=== PATIENT | male | born 1995 | race Caucasian/White ===

== ENCOUNTER 2023-01-29 00:57 | Outpatient (CLI) | payer OTHER, SELFPAY | END 2023-01-29 00:58 | disposition home or self-care (01) | LOC: AMB 10:57 | PROVIDERS: Visit Provider Family Medicine | DX: K59.00 Constipation, unspecified (principal) | CPT/HCPCS: A0425; A0429 ==

== ENCOUNTER 2023-01-29 01:14 | Emergency (ER) | payer OTHER, SELFPAY ==
[2023-01-29 01:18] VITALS: BP 128/85; PULSE 73; RESP 16; TEMP 36.1; O2SAT 100
--- NOTE | 2023-01-29 01:41 | ED.GENADULT ---
HPI - General Adult General Chief complaint: Constipation Stated complaint: constipation Time Seen by Provider: 01/29/23 01:26 Source: patient Mode of arrival: EMS Limitations: no limitations History of Present Illness HPI narrative: 27-year-old male current resident of [facility] presents to the emergency department by EMS because of 4 days of constipation. Started Suboxone 4 days ago with a history of opiate use and persistent opiate cravings. Had not been using opiates in the immediate time prior to starting Suboxone. Has struggled with constipation as a teenager. Notes 7/10 abdominal pain, diffuse. Had a tiny spot of blood when attempting to wipe earlier today. Still eating and drinking normally, voiding without complication, no fever. Tried taking a dose of milk a magnesia with no improvement in symptoms. No history of bowel surgeries, not immune compromised. He has some restrictions staying at the [facility] regarding accessing medical care, nursing support only available on Tuesdays and . Was not started on a bowel regimen with his Suboxone. No abdominal pain or trauma, no difficulty voiding, no fevers or recent signs of illness. Reports that his past medical history is notable for anxiety and opiate dependence. Home meds are Lexapro, BuSpar, Vyvanse and for mg Suboxone at bedtime. Penicillin allergy. ROS notable for the constipation symptoms as described above, otherwise denies times 12 systems. Related Data Previous Rx's Medication Instructions Recorded polyethylene glycol 3350 17 17 g PO DAILY #510 grams 01/29/23 gram/dose oral powder (Miralax) sennosides 8.6 mg capsule (senna) 17.2 mg (2 x 8.6 mg) PO QHS PRN 01/29/23 constipation #30 caps Allergies Allergy/AdvReac Type Severity Reaction Status Date / Time Penicillins Allergy Intermediate Hives Verified 01/29/23 01:24 [facility] Social History Non-prescribed substance use: former substance user Non-prescribed substance use details: history of methamphetamine use. service: No Exam Const: Vital Signs, click to edit/add: Vital Signs - 24 hr 01/29/23 01:18 Temperature 97.0 F L Pulse Rate [Left P ulse Oximeter] 73 Respiratory Rate 16 Blood Pressure [Ri ght Upper Arm] 128/85 Pulse Oximetry 100 Oxygen Delivery Me thod Room Air Documenting provider has reviewed patient's vital signs: yes Common normals: no apparent distress General appearance: comfortable HENMT: Common normals: normocephalic Head and scalp: normocephalic Eye: Common normals: conjunctivae normal General eye: normal appearance of both eyes Conjunctiva: conjunctiva(e) normal Neck & C-Spine: Common normals: no lymphadenopathy General: normal visual inspection Resp: Common normals: normal respiratory effort and no use of accessory muscles Effort & inspection: able to speak in complete sentences Cardio: Common normals: regular rate, regular rhythm, S1 normal heart sound, S2 normal heart sound and no murmurs Rate: regular rate Rhythm: regular rhythm Heart sounds: S1 normal and S2 normal GI: Common normals: Normal to inspection, nondistended, normoactive bowel sounds present, soft to palpation, no hepatosplenomegaly and no masses Palpation: soft and no hepatosplenomegaly Other: Mildly diffusely tender, nonfocal. Bowel sounds normoactive in all 4 quadrants. Neuro: Speech: speech normal Gait (neuro): normal gait Psych: Attitude: engaged Mood and affect: euthymic mood Insight: fair Judgement: fair Skin: Common normals: no rashes or lesions noted General skin exam: no rashes or lesions noted Course Course ED Course: No features of obstruction, infection, volvulus, impaction. Has not tried adequate outpatient regimen. Recommend oral treatment. Will be given 2 senna tablets here in the ED and a single dose of MiraLax. Prescription sent to his local pharmacy for 2 senna every night and a dose of MiraLax daily. Counseled on continued outpatient follow-up if symptoms fail to improve within the next 3 days. Alarm symptoms reviewed that would warrant ED presentation. He verbalizes understanding and agreement Vital Signs Vital signs: Initial Vital Signs Temperature 97.0 F L 01/29/23 01:18 Temperature Source Temporal Artery Scan 01/29/23 01:18 Pulse Rate 73 01/29/23 01:18 Pulse Rhythm Regular 01/29/23 01:18 Respiratory Rate 16 01/29/23 01:18 Blood Pressure 128/85 01/29/23 01:18 Blood Pressure Mean 99 01/29/23 01:18 Blood Pressure Position Sitting 01/29/23 01:18 Pulse Oximetry 100 01/29/23 01:18 Oxygen Delivery Method Room Air 01/29/23 01:18 Vital Signs Temperature 97.0 F L 01/29/23 01:18 Pulse Rate 73 01/29/23 01:18 Respiratory Rate 16 01/29/23 01:18 Blood Pressure 128/85 01/29/23 01:18 Pulse Oximetry 100 01/29/23 01:18 Oxygen Delivery Method Room Air 01/29/23 01:18 Temperature 97.0 F L 01/29/23 01:18 Pulse Rate 73 01/29/23 01:18 Respiratory Rate 16 01/29/23 01:18 Blood Pressure 128/85 01/29/23 01:18 Pulse Oximetry 100 01/29/23 01:18 Oxygen Delivery Method Room Air 01/29/23 01:18 Medical Decision Making Imaging Data CT scan - pelvis: Attestation: I have reviewed the pertinent imaging results. My impression: Right-sided obstructing ureteral stone with hydronephrosis, swelling and inflammation around the right kidney suggestive of infection Radiologist's impression: IMPRESSION: 1. Mild right hydronephrosis to the level of the proximal right ureter where there is a 6 mm obstructing calculus. Additionally, there are regions of geographic hypo enhancement involving the right renal parenchyma, with enhancement of the ureteral wall, which can be seen with pyelonephritis and ureteritis. Correlation with urinalysis is advised. 2. No acute appendicitis. Discharge Plan Discharge Clinical Impression: Constipation Patient Disposition: Home, Self-Care Condition: Stable Instructions: Constipation (DC) Additional Instructions: As we discussed, you seem to have mild constipation but no signs of obstruction or other complication. Typically management for this type of conditions since you are still able to eat and drink can wait until an available outpatient clinic visit or your next scheduled visit with the nurse or physician. I do think that the Suboxone has caused your constipation, therefore you will need a long-term plan to manage this. The dose of magnesia that you have already taken is likely to cause some cramping. I have given you a dose of senna and a dose of MiraLax. I would like for you to continue taking the MiraLax every day. Take 2 tablets of senna at bedtime if you have not had a bowel movement in 24 hours. I will send a prescription to [facility]. It may take a few days for the medications to kick in completely. Eat lots of fresh fruit and vegetables and drink plenty of water. As discussed, he should come to the emergency department if you have not had a bowel movement in over 2 weeks, you have persistent vomiting, continuously bloody stools, or abdominal pain accompanied by fever over 100.4. You may resume all typical treatment related activities, employment, etc.. Activity Level: No Restrictions Discharge Diet: Regular Prescriptions: New polyethylene glycol 3350 [Miralax] 17 gram/dose powder 17 g PO DAILY Qty: 510 0RF senna 8.6 mg capsule 17.2 mg PO QHS PRN (Reason: constipation) Qty: 30 0RF Rx Instructions: Use if you have not had a bowel movement in the past 24 hours. Stand Alone Forms: [employer] Info Instructions
== END 2023-01-29 02:10 | disposition home or self-care (01) ==
PROVIDERS: Emergency Provider Family Medicine
DX: K59.00 Constipation, unspecified (principal)
CPT/HCPCS: 99283